=== PATIENT | male | born 1995 | race Caucasian/White ===

== ENCOUNTER 2018-11-29 15:20 | Emergency (ER) | payer SELFPAY ==
[~2018-11-29] VITALS: Ht 157.5 cm; Wt 54.5 kg
[2018-11-29 15:29] VITALS: Ht 157.5 cm; Wt 54.5 kg
[2018-11-29] MEDS ORDERED: NAPROXEN 500 MG TAB PO ONE (16:30)
[2018-11-29] MEDS ORDERED: NAPR-985 PO (16:32)
--- NOTE | 2018-11-29 16:40 | ERD ---
ER Documentation Chief Complaint Chief Complaint head pain left temporal area x5 days HPI 23yo M presents with complaint of headache x 5 days. Pt describes pain as a throbbing/pressure feeling across the forehead. Pt has been taking motrin with some improvement in symptoms but not completely. Denies dizziness, N/V, or blurred vision. Pt admits to clenching teeth at night and during the day. Denies chronic medical conditions other than hx of anxiety. Admits to etoh and tobacco use, denies marijuana or drug use. ROS All systems reviewed and are negative except as per history of present illness. Medications Home Meds Active Scripts Naproxen* (Naprosyn*) 500 Mg Tablet, 500 MG PO BID PRN for PAIN AND/OR INFLAMMATION, #30 TAB Prov:ANT DURAN PA-C 11/29/18 Reported Medications [None] No Conflict Check 03/01/11 Allergies Allergies: Coded Allergies: No Known Allergies (Verified Allergy, Unknown, 11/29/18) PMhx/Soc Medical and Surgical Hx: pt denies Medical Hx, pt denies Surgical Hx History of Surgery: No Anesthesia Reaction: No Hx Neurological Disorder: No Hx Respiratory Disorders: Yes (ASTHMA) Hx Cardiac Disorders: No Hx Psychiatric Problems: No Hx Miscellaneous Medical Probl: No Hx Alcohol Use: Yes Hx Substance Use: No Hx Tobacco Use: Yes Smoking Status: Never smoker FmHx Family History: No diabetes, No coronary disease, No other Physical Exam Vitals Vital Signs Date Temp Pulse Resp B/P (MAP) Pulse Ox O2 O2 Flow FiO2 Time Delivery Rate 11/29/18 98.4 77 18 140/85 97 15:29 (103) Physical Exam Constitutional: Well developed. Well nourished. No acute distress Head/Eyes: Atraumatic. Normocephalic. PERRL. EOMI. no visible nystagmus. ENT: Moist mucous membranes. Voice normal. Neck: Supple. No lymphadenopathy Cardiovascular: Regular rate and rhythm. No murmurs, rubs, or gallops. Distal pulses intact Respiratory: No respiratory distress. Normal breath sounds. No wheezes, rales, or rhonchi. Abdominal: Soft. Non-tender. No guarding, rebound, or rigidity. Non-distended. Extremities: No edema, Full ROM Skin: Dry. No rashes. Warm Neurological: Alert and oriented x3. Appropriate speech, mood and affect. Face is symmetric. Speech is normal. CN II-XII intact. Moves all extremities equally. Ambulates with a strong, steady gait. Able to perform [id number] test. Psychiatric: Normal mood. Normal affect Results 24 hrs Current Medications Medications Dose Sig/Samuel Start Time Status Last (Trade) Ordered Route PRN Stop Time Admin Dose Reason Admin Naproxen 500 mg ONCE ONCE 11/29/18 DC 11/29/18 (Naprosyn) PO 16:30 17:03 11/29/18 16:31 Naproxen 500 mg NOW PO 11/29/18 Cancel (Naprosyn) 17:00 11/29/18 17:01 Procedures/MDM MDM: 23yo M who presents with a headache x 5 days. There are no neurologic findings on exam and no evidence of any neurologic deficits on exam. There are no meningismal signs on physical exam. The patient denies this being the worst headache of her life or a sudden onset headache. I do not find evidence of likely bacterial, viral, or fungal [employer]IST[employer] infection such as meningitis or encephalitis given that the patient does not have significant fever, stiff neck, meningeal signs, or confusion. I feel that further imaging would be very low yield and is not warranted at this time. Given history of bruxism, physical exam and history consistent with tension headache. Pt was treated with Naproxen 100 mg while in the ED. Patient noted improvement in symptoms with administration of naproxen. Pt is aware that I feel that they are stable for observation at home now but that condition may change. I have instructed to return to the emergency room at any time and immediately should neurologic changes, altered mental status, increase in headache, persistent vomiting, or other concerns occur. At this time patient stable for discharge with outpatient management. Patient prescribed naproxen 500 mg as needed headache. Counseled regarding bruxism and advised to follow-up with dentist for possible cook night to prevent further tension headaches. Pt agrees with and understands the plan and all questions were answered prior to discharge. Departure Diagnosis: Primary Impression: Tension headache Additional Impression: Bruxism Condition: Good Patient Instructions: Tension Headaches, Understanding Bruxism (Teeth Grinding) ANT DURAN PA-C November 29, 2018 16:40
[2018-11-29] MEDS ORDERED: NAPROXEN 250 MG TAB PO SCH (17:00)
[2018-11-29 17:22] VITALS: BP 131/65; PULSE 75; RESP 19
== END 2018-11-29 17:23 | disposition home or self-care (01) ==
LOC: FTE 15:20
DX: G44.209 Tension-type headache, unspecified, not intractable (principal); J45.909 Unspecified asthma, uncomplicated; F45.8 Other somatoform disorders; Z87.891 Personal history of nicotine dependence
CPT/HCPCS: 99282